=== PATIENT | male | born 2000 | race Hispanic/Latino ===

== ENCOUNTER 2019-03-15 03:58 | Emergency (ER) | payer OTHER ==
[2019-03-15] MEDS ORDERED: TETANUS/DIPHTHERIA TOXOID [ADULT] 0.5 ML VIAL IM ONE (04:08)
[2019-03-15] MEDS ORDERED: IBUPROFEN 200 MG TAB ONE (04:08)
[2019-03-15] MEDS ORDERED: FAMOTIDINE 20MG TAB 20 MG TAB ONE (04:44)
[2019-03-15] MEDS ORDERED: HYDROCODONE/ACETAMINOPHEN 10/325 MG TAB ONE (05:54)
== END 2019-03-15 06:05 | disposition home or self-care (01) ==
LOC: EDH 03:58 → EDBD 03:58 → EDH 06:05
DX: S52.292A Other fracture of shaft of left ulna, initial encounter for closed fracture (principal); S81.812A Laceration without foreign body, left lower leg, initial encounter; Y00.XXXA Assault by blunt object, initial encounter; Y93.89 Activity, other specified; Y92.89 Other specified places as the place of occurrence of the external cause; Y99.8 Other external cause status
CPT/HCPCS: 29125; 73090; 73110; 73562; 73590; 90471; 90714